=== PATIENT | female | born 1975 | race Caucasian/White ===

== ENCOUNTER → 2021-02-06 | Outpatient (CLI) | payer OTHER | LOC: MC.RAD 13:48 | DX: N63.11 Unspecified lump in the right breast, upper outer quadrant (principal); Z87.898 Personal history of other specified conditions; Z98.82 Breast implant status ==

== ENCOUNTER → 2022-06-14 | Outpatient (CLI) | payer OTHER | LOC: MC.RAD 11:30 | DX: Z12.31 Encounter for screening mammogram for malignant neoplasm of breast (principal) ==

== ENCOUNTER → 2023-07-23 | Outpatient (CLI) | payer OTHER | LOC: CANSCHCLI → MC.RAD 11:29 | DX: Z12.31 Encounter for screening mammogram for malignant neoplasm of breast (principal); N64.89 Other specified disorders of breast ==

== ENCOUNTER 2023-11-20 07:15 | Day surgery (SDC) | payer OTHER ==
[~2023-11-20] VITALS: Ht 162.6 cm; Wt 63.3 kg
[~2023-11-20 07:15] MED LIST: LR 1,000 ML IV SCH; Ondansetron 4 MG/2 ML VIAL IV PRN
[2023-11-20 07:26] VITALS: BP 107/71; PULSE 62; TEMP 97.1
[2023-11-20] MEDS ORDERED: 00186-0370-20 IH (07:35)
[2023-11-20] MEDS ORDERED: PROAIR HFA0.09 MG/AC IH (07:36)
[2023-11-20] MEDS ORDERED: ZYRTEC 10MG10 MG PO (07:36)
--- NOTE | 2023-11-20 07:55 | NUR ---
The patient ambulated back to [place] [facility] independently using a steady gait and appeared to tolerate the activity well. Vital signs obtained. Consent signed. 22G IV started in right hand on second attempt, LR infusing without difficulty. Assessment completed. Home medications reconcilled. Call light is within reach. Warm blanket provided. The patient denies any further needs at this time.
[2023-11-20] MEDS ORDERED: fentaNYL 50 MCG/ML 2 ML VIAL ONE (08:46)
[2023-11-20] MEDS ORDERED: Lidocaine PF 2% (20 MG/ML) 5 ML VIAL ONE (08:46)
[2023-11-20 09:40] VITALS: BP 108/66; PULSE 72; TEMP 97.6
[2023-11-20 09:55] VITALS: BP 99/55; PULSE 68
--- NOTE | 2023-11-20 10:10 | NUR ---
DR SANCHEZ SPOKE WITH PATIENT IN PROCEDURE ROOM OF FINDINGS. PT VERBALIZED UNDERSTANDING. 0940-PT TO [place] 4 PER CART FROM PROCEDURE ROOM. PT AMBULATED TO CHAIR WITH STANDBY ASSISTANCE. REPORT RECEIVED. VS OBTAINED. CALL LIGHT WITHIN REACH. PT DENIES ANY NEEDS AT THIS TIME. 0945-PT TOLERATING CHEESE, CRACKERS, AND WATER. DENIES ANY NEEDS. 1000-IV DC'D AT THIS TIME. PT ABLE TO DRESS SELF WITHOUT ASSISTANCE. 1005-DISCHARGE EDUCATION COMPLETED WITH PT. VERBALIZED UNDERSTANDING OF HOME AND FOLLOW UP CARE. ALL QUESTIONS ANSWERED. DISCHARGE PAPERWORK GIVEN TO PT. 1010-PT OFF UNIT PER WHEELCHAIR. PT DISCHARED TO HOME WITH PER PERSONAL VEHICLE.
== END 2023-11-20 10:10 | disposition home or self-care (01) ==
LOC: SDCO 07:15
DX: Z12.11 Encounter for screening for malignant neoplasm of colon (principal); J45.20 Mild intermittent asthma, uncomplicated; N95.1 Menopausal and female climacteric states; Z23 Encounter for immunization; Z87.898 Personal history of other specified conditions; Z80.41 Family history of malignant neoplasm of ovary
CPT/HCPCS: J2704; J3010; J7120